=== PATIENT | male | born 1980 | race Caucasian/White ===

== ENCOUNTER 2018-11-19 19:19 | Emergency (ER) | payer MEDICARE, MEDICAID ==
[~2018-11-19] VITALS: Ht 177.8 cm; Wt 83.9 kg
--- NOTE | 2018-11-19 20:10 | Emergency Room Report ---
History of Present Illness General Chief Complaint: Lower Extremity Injury Source: Patient (Magda Ness) Present Illness HPI 38-year-old male currently in her dialysis having to dialysis on Mondays, Wednesdays, and Fridays here complaining of 2 weeks of right ankle pain. Patient reports that he twisted his ankle 2 weeks ago however did not seek any medical attention. Patient rating pain 10 out of 10 without radiation. Patient reports that he is positive that this is his Achilles tendon being ruptured. Denies tingling and numbness calf tenderness. Has 2+ pulse in the right foot and no calf tenderness is noted. Patient got his dialysis yesterday and has a good thrill on his AV fistula. Denies chest pain, shortness of breath , palpitation, abdominal pain, nausea vomiting. Has taken low-dose ibuprofen for pain with minimal relief. Denies other associated symptoms. Patient is upset that we do not do MRI of the Achilles tendon here in the ER. Patient reports that he wants to go to a fair tomorrow and wants to miss his dialysis and was hoping to get the MRI done today to know whether he has an Achilles rupture. (Magda Ness) Allergies: Coded Allergies: PENICILLINS (Verified Allergy, Unknown, 11/19/18) Patient History Past Medical History: see triage record Past Surgical History: unable to obtain Pertinent Family History: none Immunizations: UTD Reviewed Nursing Documentation: PMH: Agreed; PSxH: Agreed (Magda Ness) Nursing Documentation-PMH Hx Dialysis: Yes (Magda Ness) Review of Systems All Other Systems: negative except mentioned in HPI (Magda Ness) Physical Exam Vital Signs Date Time Temp Pulse Resp B/P (MAP) Pulse Ox O2 Delivery O2 Flow Rate FiO2 11/19/18 19:33 98.2 80 18 176/110 (132) 98 Room Air Sp02 EP Interpretation: reviewed, normal General Appearance: no apparent distress, alert, GCS 15, non-toxic Head: normocephalic, atraumatic Eyes: bilateral eye normal inspection, bilateral eye PERRL ENT: hearing grossly normal, normal pharynx, no angioedema, normal voice Neck: full range of motion, supple/symm/no masses Respiratory: chest non-tender, lungs clear, normal breath sounds, speaking full sentences Cardiovascular #1: regular rate, rhythm, no edema, normal capillary refill Cardiovascular #2: 2+ dorsalis pedis (R), 2+ dorsalis pedis (L) Gastrointestinal: normal bowel sounds, non tender, soft, non-distended, no guarding, no rebound Genitourinary: normal inspection, no CVA tenderness Musculoskeletal: back normal, gait/station normal, normal range of motion, non- tender, no calf tenderness, other - Negative Hart Neurologic: alert, oriented x3, responsive, motor strength/tone normal, sensory intact, speech normal Psychiatric: judgement/insight normal, memory normal, mood/affect normal, no suicidal/homicidal ideation Skin: no rash Lymphatic: normal inspection, no adenopathy (Magda Ness) Procedures Splinting Splinting : Consent: Verbal Location: Right ankle Hand-Made Type: plaster Splint: poserior short Pre-Proc Neuro Vasc Exam: normal Post-Proc Neuro Vasc Exam: normal Patient Tolerated: Well Complications: None (Magda Ness) Medical Decision Making PA Attestation Diagnosis and treatment plans were reviewed and discussed with my supervising physician Dr. Middleton (Magda Ness) Diagnostic Impression: Primary Impression: Right ankle sprain Qualified Codes: S93.401A - Sprain of unspecified ligament of right ankle, initial encounter Additional Impression: Achilles tendinitis, right leg ER Course 38-year-old male currently in her dialysis having to dialysis on Mondays, Wednesdays, and Fridays here complaining of 2 weeks of right ankle pain. Patient reports that he twisted his ankle 2 weeks ago however did not seek any medical attention. Patient rating pain 10 out of 10 without radiation. Patient reports that he is positive that this is his Achilles tendon being ruptured. Denies tingling and numbness calf tenderness. Has 2+ pulse in the right foot and no calf tenderness is noted. Patient got his dialysis yesterday and has a good thrill on his AV fistula. Denies chest pain, shortness of breath , palpitation, abdominal pain, nausea vomiting. Has taken low-dose ibuprofen for pain with minimal relief. Denies other associated symptoms. Patient is upset that we do not do MRI of the Achilles tendon here in the ER. Patient reports that he wants to go to a fair tomorrow and wants to miss his dialysis and was hoping to get the MRI done today to know whether he has an Achilles rupture. Ddx considered but are not limited to: ankle sprain, ankle strain, ankle fracture, ankle contusion Vital signs: are WNL, pt. is afebrile H&PE are most consistent with: Ankle sprain, Achilles tendinitis right leg ORDERS: ankle x-ray, Tylenol ED INTERVENTIONS: Right ankle splint DISCHARGE: At this time pt. is stable for d/c to home. Will provide printed patient care instructions, and any necessary prescriptions. Care plan and follow up instructions have been discussed with the patient prior to discharge. Patient to follow-up with her primary care provider especially as at this time I explained to him that MRI of the Achilles to be done by primary or Ortho as a result of her MRI for acute condition however patient has been waiting for 2 weeks and to follow-up with her primary care. (Magda Ness) ER Course Patient was splinted in equine (Tha Middleton MD) Other X-Ray Diagnostic Results Other X-Ray Diagnostic Results : X-Ray ordered: Right ankle # of Views/Limited Vs Complete: 3 View Indication: Pain EP Interpretation: Yes PA Xray: Interpretation reviewed, by supervising MD, and agrees with findings. Interpretation: no dislocation, no soft tissue swelling Impression: No acute disease Electronically Signed by: Magda Tompkins PA-C (Magda Ness) Last Vital Signs Date Time Temp Pulse Resp B/P (MAP) Pulse Ox O2 Delivery O2 Flow Rate FiO2 11/19/18 19:33 98.2 80 18 176/110 (132) 98 Room Air (Magda Ness) Disposition: HOME, SELF-CARE Condition: Stable Scripts Acetaminophen* (ACETAMINOPHEN 325MG TABLET*) 325 Mg Tablet 650 MG ORAL Q4H PRN for For Pain, #30 TAB Prov: Magda Ness 11/19/18 Referrals: NON PHYSICIAN (PCP) Patient Instructions: Achilles Tendinitis With Rehab-SportsMed, Ankle Sprain Additional Instructions: Take medication follow-up with your primary care provider I have right ankle suspicion of Achilles rupture. Keep splint on and use crutches until seen by your primary doctor. Magda Ness Nov 19, 2018 20:10 Tha Middleton MD Nov 21, 2018 14:29
[2018-11-19] MEDS ORDERED: ACETAMINOPHEN325 M1 ORAL (20:13)
[2018-11-19 20:58] VITALS: BP 176/110
--- NOTE | 2018-11-20 10:45 | Diagnostic Imaging Report ---
Indication: Ankle pain/swelling Technique: XRAY Ankle Compl Min 3v R Comparison: None FINDINGS/IMPRESSION: Bone mineralization within normal limits. No definite/displaced acute fractures identified. A small lucency within the medial malleolus without associated cortical break. This may represent sequela of remote injury, especially as there is no significant overlying soft tissue swelling. Correlation for point tenderness in this region is recommended. Degenerative changes noted in involving some tarsal articulations. There is suggestion of mild pes planus. There are prominent osteophytes involving the dorsal surface of the navicular. There is flattening of the plantar aspect of the calcaneus, uncertain etiology, possibly related to remote injury. Please correlate clinically.
== END 2018-11-19 20:58 | disposition home or self-care (01) ==
LOC: EMR 19:39
DX: S93.401A Sprain of unspecified ligament of right ankle, initial encounter (principal); M76.61 Achilles tendinitis, right leg; Z88.0 Allergy status to penicillin; Z99.2 Dependence on renal dialysis; X50.1XXA Overexertion from prolonged static or awkward postures, initial encounter; Y92.9 Unspecified place or not applicable
CPT/HCPCS: 29515; 99283